=== PATIENT | male | born 1980 | race Caucasian/White ===

== ENCOUNTER 2018-10-14 06:38 | Inpatient (IN) ==
[2018-10-14] MEDS ORDERED: Albuterol 2.5 MG/3 ML NEBULIZER IH ONE (06:56)
[2018-10-14] MEDS ORDERED: cefOXitin 2,000 MG in Water for inj. (sterile) 20 ML 20 ML IVP ONE (06:56)
[2018-10-14] MEDS ORDERED: Albuterol 2.5 MG/3 ML NEBULIZER ONE (06:58)
[2018-10-14] MEDS ORDERED: Ringers Solution, Lactated 1,000 ML IVC SCH (07:00)
--- NOTE | 2018-10-14 07:23 | History & Physical Report ---
Date of Encounter: 10/14/18 Time of Encounter: 07:23 24 Hour HP Update - Instructions Instructions: If the History and Physical is less than 30 days old and was completed prior to A.M. admission and or procedure and has NOT been updated on calendar day of procedure please complete this update prior to performing procedure. - Update Patient reports changes in Medical Condition: No Changes in examination, assessment, or condition: No Changes in Medication: No Preop tests/diagnostics Reviewed: Yes Pre-Op MRSA Screen: Negative Surgery Remains Indicated: Yes Consent for Planned Operative Procedure(s) Verified: Yes - Pre-Operative Checklist Preoperative Checklist Indicated: No Prophylactic Antibiotic Ordered: Yes Home Medications Include Beta Alonso: No Beta Alonso Taken Today (Day of Surgery): No Beta Alonso Taken Yesterday (Day Prior to Surgery): No Is VTE Prophylaxis Indicated?: NO
[2018-10-14] MEDS ORDERED: Lidocaine -MPF 2% 2 ML VIAL ONE (07:46)
[2018-10-14] MEDS ORDERED: *HR* Propofol 200 MG/20 ML VIAL IVP ONE (07:46)
[2018-10-14] MEDS ORDERED: Lidocaine -MPF 4% 5 ML AMPUL ONE (07:46)
[2018-10-14] MEDS ORDERED: *HR* FentaNYL (PF) 100 MCG/2 ML VIAL ONE (07:46)
[2018-10-14] MEDS ORDERED: Ondansetron 4 MG/2 ML VIAL ONE (07:46)
[2018-10-14] MEDS ORDERED: Dexamethasone 4 MG/ML VIAL ONE (07:46)
[2018-10-14] MEDS ORDERED: *HR* Rocuronium Bromide 50 MG/5 ML VIAL ONE ×3 (07:46→10:33)
[2018-10-14] MEDS ORDERED: *HR* Midazolam HCl 2 MG/2 ML VIAL ONE (07:46)
--- NOTE | 2018-10-14 08:08 | Anesthesia Evaluation PreOp ---
Date of Encounter: 10/14/18 Time of Encounter: 08:05 - Past History Planned Operation: Robotic Colon Resection Cardiac History: HTN Pulmonary History: Smoker, Pack/yr (1 ppd x 19 years) [employer]CHO[employer]ER[employer] History: Other (Anxiety, Bi[olar) Other Medical History: Denies Any Significant HX Anesthesia History: No Prior Anesthetic Complications, Past Anesthesia (colonoscopy) Alcohol Use: none Drug use: none Medications and Allergies Citalopram [CeleXA] 20 mg PO DAILY 08/26/16 [History] HydrOXYzine Pamoate [Vistaril] 50 mg PO Q4-6H PRN #20 capsule 05/04/17 [Rx] Famotidine [Pepcid] 20 mg PO BID #14 tablet 03/21/18 [Rx] Lisinopril [Zestril] 10 mg PO DAILY 05/05/18 [History] Lactobacillus [Culturelle] 1 each PO BID #6 cap.sprink 05/06/18 [Rx] Naproxen [Naprosyn] 500 mg PO BID PRN 10/14/18 [History] Trazodone HCl 50 - 100 mg PO HS PRN 10/14/18 [History] Allergy/AdvReac Type Severity Reaction Status Date / Time No Known Allergies Allergy Verified 10/14/18 07:59 - Meds/Allergy Pre-op Review Medications Reviewed: Yes Allergies Reviewed: Yes Beta Blockers on Current Med List: No Anesthesia Results - Labs Laboratory Tests 10/10/18 10/10/18 10/10/18 10:10 10:10 10:10 WBC 9.6 Hgb 17.2 H Hct 49.2 Plt Count 300 INR 0.9 Sodium 140 Potassium 4.0 Chloride 110 H Carbon Dioxide 25 BUN 14 Creatinine 0.72 - Imaging EKG: report reviewed (SR) Anesthesia Exam O2 Sat Height 1.78 m Height 1.78 m Weight 120.656 kg Weight 120.656 kg O2 Sat by Pulse Oximetry 95 Vital Signs Temp Pulse Resp BP Pulse Ox 98.2 F 87 18 129/88 95 10/14/18 06:54 10/14/18 06:54 10/14/18 06:54 10/14/18 06:54 10/14/18 06:54 NPO (# of Hours): > 8 hrs Pain Scale: 0 Pain Scale Used: Numeric (1 - 10) - HEENT Pupil (Motor): Pupils equal, EOMI Mallampati: II Teeth: Normal Oral Opening: Greater than 3 - SCHOOL SPEE[employer] THER[employer]IST LOC: Oriented [employer]CHO[employer] THER[employer]IST Motor: Normal RUE, Normal LUE, Normal RLE, Normal LLE, Normal Face [employer]ER[employer] Sensory: Normal: RUE, LUE, RLE, LLE, Face - Cardiac Rhythm: Regular Murmur: None JVD: No Carotid Bruit: No - Pulmonary Breath Sounds: left Rhonchi, bilateral Clear Anesthesia Assess/Plan ASA Score: 2 Level of consciousness: Oriented Anesthetic Plan: General Autologous Blood: Yes Monitoring Plan: Standard Monitors Recovery Plan: PACU
[2018-10-14] MEDS ORDERED: Acetaminophen IV 1,000 MG/100 ML INFUS..BTL ONE (09:49)
[2018-10-14] MEDS ORDERED: *HR* Morphine 10 MG/ML VIAL ONE ×2 (10:41→12:18)
[2018-10-14] MEDS ORDERED: Neostigmine Methylsulfate 3 MG/3 ML SYRINGE ONE (12:10)
--- NOTE | 2018-10-14 12:22 | Operative Note ---
Date of procedure: 10/14/18 Pre-op diagnosis: Sigmoid diverticulitis Post-op diagnosis: same Procedure: Robot sigmoid colectomy Anesthesia: GETA Surgeon: Cayetano Molina Was there an laboratory assistant present: Yes [employer]ire Care Manager: Laverne Nicole Estimated blood loss (cc): 20 Specimen: sigmoid colon, anastamotic rings Condition: stable Disposition: PACU Procedure in Detail: Date of surgery: 10/14/18 After properly identifying the patient, the patient was brought to the operating room and placed in supine position. After proper IV sedation was achieved followed general endotracheal intubation, the patient was placed in a low lithotomy position and the patient's abdomen and perianal area were prepped and draped in a normal sterile fashion. A timeout was performed noting the patient's name and type of procedure to be performed. A 15 blade scalpel was used to make an incision approximately 7-8 cm above the umbilicus along the midline. Dissection was carried down to the rectus fascia which was encountered and incised. A 12 mm port was placed through the incision and the abdomen was insufflated with carbon dioxide. A laparoscopic camera was placed through the port which showed no injury to the intra-abdominal organs upon entry. A left upper quadrant 8 mm port, and 2 additional ports in the right lower quadrant (an 8 mm and a 15 mm port) were placed under direct camera visualization. Patient was placed in a Trendelenburg position and the da Teofilo robot was brought towards the operative field and docked appropriately. The sigmoid colon was examined and noted to have signs of chronic inflammation near the its lateral sidewall attachments. The sidewall attachments were transected with Bovie cauterization. This allowed for further isolation of the sigmoid colon. The lateral sidewall attachments to the descending colon were also transected with Bovie cauterization up towards the splenic flexure. The mesentery right at the level of the sigmoid/descending colon junction was transected with a laparoscopic vessel sealer. This dissection of the mesentery was carried down towards the sacral prominence without difficult. ICG (firefly) was injected to determine the area of demarcation of blood flow along the serosal surface of the bowel which corresponded with the area/dissection of the mesentery allowing for transection of the sigmoid colon at the rectosigmoid junction with a laparoscopic robotic stapler as well as transection at the level of the descending colon/sigmoid colon junction. Once this was performed the da Teofilo robot was undocked and a 15 blade scalpel was used to make an incision in the infraumbilical midline region for length of approximate 7.5 cm. Bovie cauterization was used to dissected the subcutaneous to tissue and rectus fascia which was incised and a medium size Toby wound protector was placed through the incision. The transected sigmoid colon was then removed and submitted to pathology. The descending colon staple line was extruded through the opening and then transected without difficulty. A 2-0 Prolene suture was then used to create a pursestring followed by placement of sizers to the opening which demonstrated that the lumen could accommodate 29-Norwegian anvil. A 29-Norwegian EEA stapler was then brought onto the field and the anvil was placed through the lumen evidence the pursestring was subsequently tied. The colonic stump was placed back within the abdomen and the abdominal wall fascia was reapproximated with #1 PDS sutures 2. The subcutaneous to tissue was reapproximated with 2-0 Vicryl sutures and the epidermal and dermal layers were reapproximated with kalie. The da Teofilo robot was brought back towards the operative field and docked appropriately. The EEA stapler was placed through the anus with the male hub extruded then did through the bowel wall just inferior to the staple line of the rectum. The anvil was then connected to the male and of the stapler followed retraction of the hub and completion of the staple. Examination demonstrated 2 intact an astomotic rings and the pelvis was then filled with normal saline solution and the descending colon was clamped with a nontraumatic grasper. Air was insufflated through the anus which showed no evidence of a leak. The pelvis was then irrigated with normal saline solution and all ports were undocked after the abdomen was desufflated. The subcutaneous tissue for the incisions were closed with 0 Vicryl sutures and 3-0 Vicryl sutures. The epidermal and dermal layers were then closed with kalie. Needle, sponge, and instrument counts were correct 2 and the incisions were covered with a 2 x 2 gauze. The patient was aroused from IV sedation, extubated in the operating room without complication, and transported to the recovery room stable condition.
[2018-10-14] MEDS ORDERED: *HR* HYDROmorphone (PF) 1 MG/ML SYRINGE IVP PRN (12:59)
[2018-10-14] MEDS ORDERED: *HR* OxyCODONE Immed Rel 5 MG TABLET PO PRN (13:00)
--- NOTE | 2018-10-14 13:34 | Anesthesia Evaluation Post Op ---
Date of Encounter: 10/14/18 Time of Encounter: 13:33 - Vital Signs Vital Signs: Vital Signs/O2 Sat/Glucose, Most Recent Temp Pulse Resp BP Pulse Ox 98.9 F 84 18 113/65 94 10/14/18 13:04 10/14/18 13:24 10/14/18 13:24 10/14/18 13:24 10/14/18 13:24 - Lungs Lungs: Clear Ascult./Percussion - Airway Airway: Non-obstructed - Cardiovascular Regular Rate - Mental Status Mental Status: Alert & Oriented, Answers Appropriately - Pain Pain Scale: 0 Pain Scale used: Numeric (1 - 10) - Nausea Vomiting Nausea Vomiting: Not Present - Hydration Hydration: NPO - Discharge PostOp Status: Transfer Patient to floor
[2018-10-14] MEDS ORDERED: Pantoprazole 40 MG VIAL IVP ONE (14:07)
[2018-10-14] MEDS ORDERED: MORPHINE SUL Oral CONC 10 MG/0.5 ML ORAL.SYG SL PRN (14:07)
[2018-10-14] MEDS ORDERED: Naloxone 0.4 MG/ML INJ IVP PRN (14:07)
[2018-10-14] MEDS: 0.9 % Sodium Chloride 1,000 ML IVC SCH (14:31)
[2018-10-14 15:21] LABS: Basophils % 0.1 %; Eosinophils % 0.1 %; Hematocrit 47.8 % (37.5-50.1); Hemoglobin 16.4 g/dL (12.9-16.9); Immature Granulocytes % 0.5 % (0-4); Lymphocytes # 1.1 K/mcL (0.6-4.6); Lymphocytes % 6.2 %; Mean Corpuscular HGB Conc 34.3 g/dL (31.6-35.5); Mean Corpuscular Hemoglobin 30.4 pg (28.0-33.3); Mean Corpuscular Volume 88.5 fL (83.0-100.0); Mean Platelet Volume 8.1 fL (9.4-12.4); Monocytes # 0.3 K/mcL (0.0-1.3); Neutrophils # 15.4 K/mcL (1.6-8.9); Platelet Count 298 K/mcL (140-400); Red Cell Distribution Width 11.7 % (11.5-14.5); Segmented Neutrophils % 91.1 %
[2018-10-14] MEDS: cefOXitin 1,000 MG in Water for inj. (sterile) 20 ML 10 ML IVP SCH ×2 (16:39→23:54)
[2018-10-14] MEDS: *HR* Heparin 5,000 UNIT/ML VIAL SQ SCH (16:39)
[2018-10-14 23:03] LABS: Basophils % 0.1 %; Hematocrit 44.8 % (37.5-50.1); Hemoglobin 15.6 g/dL (12.9-16.9); Immature Granulocytes % 0.2 % (0-4); Lymphocytes # 1.2 K/mcL (0.6-4.6); Lymphocytes % 9.1 %; Mean Corpuscular HGB Conc 34.8 g/dL (31.6-35.5); Mean Corpuscular Hemoglobin 30.8 pg (28.0-33.3); Mean Corpuscular Volume 88.4 fL (83.0-100.0); Mean Platelet Volume 8.2 fL (9.4-12.4); Monocytes # 0.8 K/mcL (0.0-1.3); Monocytes % 6.4 %; Neutrophils # 11.1 K/mcL (1.6-8.9); Platelet Count 291 K/mcL (140-400); Red Blood Count 5.07 M/mcL (4.19-5.50); Red Cell Distribution Width 11.7 % (11.5-14.5); Segmented Neutrophils % 84.2 %
[2018-10-15] MEDS: 0.9 % Sodium Chloride 1,000 ML IVC SCH (03:19)
[2018-10-15 06:23] LABS: BUN/Creatinine Ratio 17 (6-26); Blood Urea Nitrogen 12 mg/dL (6-20); Calcium 8.6 mg/dL (8.6-10.3); Carbon Dioxide 23 mEq/L (23-29); Chloride 109 mEq/L (98-107); Glucose 118 mg/dL (70-105); Magnesium 1.8 mg/dL (1.6-2.6); Osmolality,Calculated 287 (280-300); Potassium 4.1 mEq/L (3.5-5.1); Sodium 138 mEq/L (136-145); eGFR For Non-African Americans > 60 (> 60)
[2018-10-15] MEDS: *HR* Heparin 5,000 UNIT/ML VIAL SQ SCH ×2 (06:30→17:44)
[2018-10-15] MEDS: OXYCODONE Oral CONC 10 MG/0.5 ML ORAL.SYG SL PRN ×2 (08:25→20:25)
[2018-10-15] MEDS: cefOXitin 1,000 MG in Water for inj. (sterile) 20 ML 10 ML IVP SCH (08:26)
[2018-10-15] MEDS ORDERED: Ketorolac 15 MG/ML VIAL IVP SCH (10:27)
[2018-10-15] MEDS ORDERED: *HR* OxyCODONE/APAP 5/325 TABLET PO PRN (10:28)
[2018-10-15] MEDS ORDERED: traZODone 50 MG TABLET PO PRN (10:30)
[2018-10-15] MEDS ORDERED: 0.9 % Sodium Chloride 1,000 ML IVC SCH (10:31)
--- NOTE | 2018-10-15 10:34 | General Surgery Progress Note ---
<Vivi Hughes - Last Filed: 10/15/18 10:31> Date of Encounter: 10/15/18 Time of Encounter: 10:31 - Assessment and Plan (1) Diverticulitis Status: Acute Date of procedure: 10/14/18 Pre-op diagnosis: Sigmoid diverticulitis Post-op diagnosis: same Procedure: Robot sigmoid colectomy Anesthesia: GETA Surgeon: Cayetano Molina POD #1 as above. Pt has not attempted to get OOB. He states his abdominal discomfort is moderately controlled but had refused pain meds until recently. He has not been using his incentive spirometer. His Herron remains in place. I reviewed extensively with the patient the need to get out of bed, ambulate, and uses incentive spirometer. I provided education on the incentive spirometer in the patient did return demonstration. He has poor inspiratory effort. He is encouraged to continue the incentive spirometer 10 times every hour while awake. He is encouraged to splinters abdomen (he has a surgery bear in place), and we will order in abdominal binder for comfort. Plan: continue supportive care and discomfort management add scheduled Toradol and PRN Percocet decrease IV fluids to KVO, may clamp to ambulate. DC Herron advanced diet to full liquids out of bed to chair for all meals. Do not consume trays in the bed. Ambulate TID serial abdominal exams repeat a.m. labs (2) HTN, goal below 130/80 Status: Acute Vital signs stable. Will DC fluids and continue home lisinopril. (3) Insomnia Status: Acute Continue home trazodone. Qualifiers: Insomnia type: unspecified Qualified Code(s): G47.00 - Insomnia, unspecified Subjective Patient reports: still having pain, pain is less, tolerating liquids well, voiding w/o difficulty (per herron), no flatus, no bowel movement, afebrile Objective Vital Signs - Last 8 Hours Temp Pulse Resp BP Pulse Ox 10/15/18 06:34 98.2 F 72 16 115/71 92 10/15/18 03:08 98.1 F 76 15 106/67 92 Intake and Output 10/14/18 10/15/18 10/15/18 23:59 07:59 15:59 Intake Total 980 / 980 1000 / 1000 930 / 930 Output Total 1950 / 1950 700 / 700 Balance -970 / -970 300 / 300 930 / 930 Intake: IV Fluids 1000 / 1000 10 / 10 0.9 % Sodium Chloride 1,000 ML 1000 / 1000 @ 80 mls/hr IVC .[id number] NIKOLE Rx #:[id number] Mefoxin 1,000 MG In Water for 20 10 10 inj. (sterile) 10 ML @ 300 mls/ hr IVP Q8HR NIKOLE Rx#:[id number] Oral 960 / 960 0 / 0 920 / 920 Output: Catheter 1950 / 1950 700 / 700 Other: Meal clears Breakfast Weight 120.6 kg Patient Weight 10/15/18 23:59 Weight 120.6 kg - General physical appearance no distress, moderate pain - Eyes normal ocular movement - ENT poor correction, atraumatic, normocephalic - Neck Neck exam: trachea midline - Respiratory other (decreaed resp effort) - Cardiovascular Cardiovascular exam: Present: RRR - Abdomen Abdomen: Present: bowel sounds present (hyperactive), soft, tender (expected postoperative) - Incision Incision: Present: clean and dry, intact - Integumentary no rash, other (tatoos) - Neurologic normal sensation - Musculoskeletal normal posture (he has not attempted to get OOB) - Psychiatric oriented to time, oriented to person, oriented to place, speech is normal - Labs 10/14/18 22:51 10/15/18 05:46 Diabetes panel 10/15/18 Range/Units 05:46 Sodium 138 (136-145) mEq/L Potassium 4.1 (3.5-5.1) mEq/L Chloride 109 H (98-107) mEq/L Carbon Dioxide 23 (23-29) mEq/L BUN 12 (6-20) mg/dL Creatinine 0.69 L (0.70-1.30) mg/dL Glucose 118 H (70-105) mg/dL Calcium 8.6 (8.6-10.3) mg/dL Calcium panel 10/15/18 Range/Units 05:46 Calcium 8.6 (8.6-10.3) mg/dL Pituitary panel 10/15/18 Range/Units 05:46 Sodium 138 (136-145) mEq/L Potassium 4.1 (3.5-5.1) mEq/L Chloride 109 H (98-107) mEq/L Carbon Dioxide 23 (23-29) mEq/L BUN 12 (6-20) mg/dL Creatinine 0.69 L (0.70-1.30) mg/dL Glucose 118 H (70-105) mg/dL Calcium 8.6 (8.6-10.3) mg/dL Adrenal panel 10/15/18 Range/Units 05:46 Sodium 138 (136-145) mEq/L Potassium 4.1 (3.5-5.1) mEq/L Chloride 109 H (98-107) mEq/L Carbon Dioxide 23 (23-29) mEq/L BUN 12 (6-20) mg/dL Creatinine 0.69 L (0.70-1.30) mg/dL Glucose 118 H (70-105) mg/dL Calcium 8.6 (8.6-10.3) mg/dL - VTE Documentation of Mechanical Device: Intermittent pneumatic compression device Consult Discharge Plan - Plan Instructions: How to Stop Smoking (DC), Soft Diet (DC), Cigarette Smoking and Your Health (GEN), Colectomy (DC) Additional Instructions: General Surgical Discharge Instructions 1. No pushing, pulling, or lifting greater than 15 lbs for 2-4 weeks (depending upon procedure). 2. You may shower beginning today, but no tub baths, soaking, or swimming for 2 weeks. 3. You may resume driving when you are off narcotics and are safe to react in a car. 4. Take ibuprofen every 8 hours for discomfort. If this does not relieve discomfort, you may take the as needed Percocet. Take narcotics as directed. Do not take more narcotics then directed and do not share your narcotics with any other person. Do not drink alcohol while on narcotics. 4A: Take narcotics with food. You can take Zofran prior to narcotics to help reduce nausea. 5. Take stool softeners (Colace) or a water based laxative (Miralax) while taking narcotics. You may hold for loose stools. 6. Report any fevers greater than 100.5F, increase abdominal discomfort, drainage that looks like pus, increased redness or pain at the surgical site, or any vomiting. 7. Report any pain in the calves, shortness of breath, or rapid heartbeat. 8. Follow-up in the office as directed. 9. If you were prescribed antibiotics, do not stop them without talking to your provider. Referrals: Cayetano Molina MD [Partnered Physician] - 10/30/18 2:05 pm Prescriptions: Ondansetron ODT [Zofran ODT] 4 mg SL Q4HR PRN #15 tab.rapdis PRN Reason: Postsurgical nausea OxyCODONE/APAP 5/325 [Percocet 5/325 MG] 1 each PO Q6HR PRN 7 Days #28 tablet PRN Reason: Pain Docusate Sodium [Colace] 100 mg PO BID PRN #30 capsule PRN Reason: Constipation Ibuprofen 800 mg PO Q8H PRN #42 tablet PRN Reason: Mild Pain <Cayetano Molina - Last Filed: 10/17/18 07:33> Date of Encounter: 10/15/18 Objective Intake and Output 10/16/18 10/16/18 10/17/18 15:59 23:59 07:59 Intake Total 220 / 220 Balance 220 / 220 Intake: IV Fluids 100 / 100 Ofirmev 1,000 mg/100 ml 1,000 100 / 100 mg In 100 ml @ 400 mls/hr IVPB ONCE ONE Rx#:[id number] Oral 120 / 120 Other: Meal Lunch Percent of Meal Consumed 100% Stool Size Moderate Stool Consistency liquid Stool Characteristics Tarry Stool Color Black # Voids 2 # Bowel Movement Diapers 1 - Labs 10/16/18 04:20 10/16/18 04:20 - Attending Attestation I have personally performed a face to face evaluation on this patient. I have reviewed and agree with the care plan. History and Exam by me shows: Reviewed the above assessment and evaluation and agree with the above plan.
[2018-10-15] MEDS: Ketorolac 15 MG/ML VIAL IVP SCH ×2 (11:52→17:43)
[2018-10-16] MEDS: Ondansetron 4 MG/2 ML VIAL IVP PRN ×2 (00:26→06:44)
[2018-10-16] MEDS: Ketorolac 15 MG/ML VIAL IVP SCH (00:27)
[2018-10-16] MEDS: OXYCODONE Oral CONC 10 MG/0.5 ML ORAL.SYG SL PRN (03:54)
[2018-10-16 05:09] LABS: Basophils % 0.3 %; Eosinophils # 0.1 K/mcL (0.0-0.6); Eosinophils % 0.6 %; Hematocrit 43.6 % (37.5-50.1); Hemoglobin 14.6 g/dL (12.9-16.9); Immature Granulocytes % 0.3 % (0-4); Lymphocytes # 2.5 K/mcL (0.6-4.6); Lymphocytes % 20.4 %; Mean Corpuscular HGB Conc 33.5 g/dL (31.6-35.5); Mean Corpuscular Hemoglobin 30.1 pg (28.0-33.3); Mean Corpuscular Volume 89.9 fL (83.0-100.0); Mean Platelet Volume 8.3 fL (9.4-12.4); Monocytes # 1.1 K/mcL (0.0-1.3); Monocytes % 8.9 %; Neutrophils # 8.5 K/mcL (1.6-8.9); Platelet Count 263 K/mcL (140-400); Red Blood Count 4.85 M/mcL (4.19-5.50); Red Cell Distribution Width 11.7 % (11.5-14.5); Segmented Neutrophils % 69.5 %
[2018-10-16 05:28] LABS: BUN/Creatinine Ratio 17 (6-26); Blood Urea Nitrogen 12 mg/dL (6-20); Calcium 8.5 mg/dL (8.6-10.3); Carbon Dioxide 26 mEq/L (23-29); Chloride 109 mEq/L (98-107); Glucose 105 mg/dL (70-105); Osmolality,Calculated 290 (280-300); Potassium 3.7 mEq/L (3.5-5.1); Sodium 140 mEq/L (136-145); eGFR For Non-African Americans > 60 (> 60)
[2018-10-16] MEDS: *HR* Heparin 5,000 UNIT/ML VIAL SQ SCH (06:27)
[2018-10-16] MEDS ORDERED: Ketorolac 30 MG/ML VIAL IVP ONE (09:28)
[2018-10-16 11:34] VITALS: BP 125/78
[2018-10-16] MEDS ORDERED: Acetaminophen IV 1,000 MG/100 ML INFUS..BTL IVPB ONE (12:40)
--- NOTE | 2018-10-16 13:01 | Discharge Summary ---
Orders not resulted at time of discharge: Pending orders 10/14/18 12:29 Surgical Pathology [PTH] Routine Date of Encounter: 10/16/18 Time of Encounter: 13:09 - Discharge Diagnosis (1) Diverticulitis Priority: Primary Status: Acute (2) HTN, goal below 130/80 Priority: Secondary Status: Acute (3) Insomnia Priority: Secondary Status: Acute Qualifiers: Insomnia type: unspecified Qualified Code(s): G47.00 - Insomnia, unspecified General Surgery Exam Initial Vital Signs Temp Pulse Resp BP Pulse Ox 98.2 F 87 18 129/88 95 10/14/18 06:54 10/14/18 06:54 10/14/18 06:54 10/14/18 06:54 10/14/18 06:54 Vital Signs Temp Pulse Resp BP Pulse Ox 10/16/18 11:32 98.1 F 83 17 125/78 92 10/16/18 07:10 98.0 F 101 18 145/94 92 10/16/18 03:18 98.3 F 74 18 136/77 93 10/16/18 00:43 97.6 F 95 15 158/102 93 10/15/18 19:12 97.9 F 83 16 128/75 93 10/15/18 14:34 97.6 F 85 15 138/83 91 Intake and Output 10/15/18 10/16/18 10/16/18 23:59 07:59 15:59 Intake Total 0 / 0 0 / 0 Output Total 250 / 250 275 / 275 Balance -250 / -250 -275 / -275 0 / 0 Intake: Oral 0 / 0 0 / 0 Output: Urine 250 / 250 275 / 275 Other: Meal Dinner Breakfast Percent of Meal Consumed 0% 0% Stool Size Moderate Moderate Stool Consistency loose liquid Stool Characteristics Tarry Stool Color Black # Voids 2 # Bowel Movements 1 # Bowel Movement Diapers 1 VITAL SIGNS: [facility]. [facility] GENERAL: In no apparent distress. HEENT: Normocephalic, atraumatic, pupils are equal and reactive, extraocular motions intact, oropharynx is pink and moist, there is no neck adenopathy or JVD noted. Multiple piercings and tattoos noted CHEST/RESPIRATORY: The thorax is free from signs of trauma. Lung sounds: decreased respiratory effort clear to auscultation CARDIAC: Regular rate and rhythm. Normal S1 and S2, without murmurs, gallops, or rubs. VASCULAR: No Edema. 2+ peripheral pulses. ABDOMEN: soft, slightly distended, active bowel sounds, non-tympanic INCISION: Surgical incision is clean, dry, and intact. There are no signs of cellulitis or infection noted. MUSCULOSKELETAL: Good range of motion of all major joints. Extremities without clubbing, cyanosis or edema. NEUROLOGIC EXAM: Alert and oriented x 3. Speech normal. Follows commands. PSYCHIATRIC: Mood normal. SKIN: No rash or lesions. Multiple tattoos noted - Hospital Course Hospital course: Mr. Millan is a 38 year old male who presented on 10/14/2018 for an elective robotic sigmoid colectomy for sigmoid diverticulitis on 10/14/[address] Molina. His pathology remains pending. His hospital course has been rela tively uncomplicated. He was advanced to a full liquid diet on 10/16/2018. He is tolerating a diet without nausea or vomiting, abdominal discomfort is better controlled. He reports nausea but associates this with the sublingual oxycodone. He is having bowel movements and passing flatus. He is afebrile. We'll begin discharge planning to home with a follow-up in the office in approximately 2 weeks. Smoking cessation is strongly encouraged - Time Spent with Patient Total time spent providing and/or coordinating discharge services: - Discharge Medications Prescriptions: Ondansetron ODT [Zofran ODT] 4 mg SL Q4HR PRN #15 tab.rapdis PRN Reason: Postsurgical nausea OxyCODONE/APAP 5/325 [Percocet 5/325 MG] 1 each PO Q6HR PRN 7 Days #28 tablet PRN Reason: Pain Docusate Sodium [Colace] 100 mg PO BID PRN #30 capsule PRN Reason: Constipation Ibuprofen 800 mg PO Q8H PRN #42 tablet PRN Reason: Mild Pain Home Medications: Citalopram [CeleXA] 20 mg PO DAILY 08/26/16 [History] HydrOXYzine Pamoate [Vistaril] 50 mg PO Q4-6H PRN #20 capsule 05/04/17 [Rx] Famotidine [Pepcid] 20 mg PO BID #14 tablet 03/21/18 [Rx] Lisinopril [Zestril] 10 mg PO DAILY 05/05/18 [History] Lactobacillus [Culturelle] 1 each PO BID #6 cap.sprink 05/06/18 [Rx] Trazodone HCl 50 - 100 mg PO HS PRN 10/14/18 [History] Docusate Sodium [Colace] 100 mg PO BID PRN #30 capsule 10/16/18 [Rx] Ibuprofen 800 mg PO Q8H PRN #42 tablet 10/16/18 [Rx] Ondansetron ODT [Zofran ODT] 4 mg SL Q4HR PRN #15 tab.rapdis 10/16/18 [Rx] OxyCODONE/APAP 5/325 [Percocet 5/325 MG] 1 each PO Q6HR PRN 7 Days #28 tablet 10/16/18 [Rx] Allergies/Adverse Reactions: Allergy/AdvReac Type Severity Reaction Status Date / Time No Known Allergies Allergy Verified 10/14/18 07:59 Date of admission: 10/14/18 14:05 Primary care physician: Darrell Bar MD Discharging clinician: Vivi Hughes Anticipated date of discharge: 10/16/18 Labs on day of discharge: Labs from last 24 hours 10/16/18 10/16/18 04:20 04:20 WBC 12.2 H RBC 4.85 Hgb 14.6 Hct 43.6 MCV 89.9 MCH 30.1 MCHC 33.5 RDW 11.7 Plt Count 263 MPV 8.3 L Immature Gran % 0.3 Seg Neutrophils % 69.5 Lymphocytes % 20.4 Monocytes % 8.9 Eosinophils % 0.6 Basophils % 0.3 Neutrophils # 8.5 Lymphocytes # 2.5 Monocytes # 1.1 Eosinophils # 0.1 Basophils # 0.0 Sodium 140 Potassium 3.7 Chloride 109 H Carbon Dioxide 26 BUN 12 Creatinine 0.71 Est GFR ( Amer) > 60 Est GFR (Non-Af Amer) > 60 BUN/Creatinine Ratio 17 Glucose 105 Calculated Osmolality 290 Calcium 8.5 L - Patient Status Disposition: Home, Self-Care Condition: Good Functional capacity at discharge: independent ambulation Overall status at discharge: patient is not back to baseline - Discharge Instructions Instructions: Colectomy (DC), Cigarette Smoking and Your Health (GEN), How to Stop Smoking (DC), Soft Diet (DC) Follow Up With: Darrell Bar MD [Primary Care Provider] - Cayetano Molina MD [Partnered Physician] - 10/30/18 2:05 pm Additional Instructions: General Surgical Discharge Instructions 1. No pushing, pulling, or lifting greater than 15 lbs for 2-4 weeks (depending upon procedure). 2. You may shower beginning today, but no tub baths, soaking, or swimming for 2 weeks. 3. You may resume driving when you are off narcotics and are safe to react in a car. 4. Take ibuprofen every 8 hours for discomfort. If this does not relieve discomfort, you may take the as needed Percocet. Take narcotics as directed. Do not take more narcotics then directed and do not share your narcotics with any other person. Do not drink alcohol while on narcotics. 4A: Take narcotics with food. You can take Zofran prior to narcotics to help reduce nausea. 5. Take stool softeners (Colace) or a water based laxative (Miralax) while taking narcotics. You may hold for loose stools. 6. Report any fevers greater than 100.5F, increase abdominal discomfort, drainage that looks like pus, increased redness or pain at the surgical site, or any vomiting. 7. Report any pain in the calves, shortness of breath, or rapid heartbeat. 8. Follow-up in the office as directed. 9. If you were prescribed antibiotics, do not stop them without talking to your provider. - Diet and Activity Activity: increase activity as tolerated Diet: other (soft diet)
== END 2018-10-16 15:12 | disposition home or self-care (01) | DRG 231 ==
LOC: SAMDAY 06:38 → 3ANU 14:05
PROVIDERS: ADMIT Surgery; ATTEND Surgery